=== PATIENT | male | born 1985 | race Asian ===

== ENCOUNTER → 2018-08-21 | Outpatient (CLI) | payer OTHER ==
--- NOTE | 2018-08-21 13:52 | KCIC ---
EXAM: Chest, single view. HISTORY: TB exposure. COMPARISON: None. FINDINGS: A frontal view of the chest is obtained. There is no infiltrate, pleural effusion or pneumothorax. The heart is normal in size. IMPRESSION: No acute pulmonary finding and no radiographic evidence of pulmonary tuberculosis. Electronically signed by: Martha Valentine MD (08/21/2018 1:49 PM) [id number]
== END | disposition home or self-care (01) ==
LOC: EDBD 11:24 → KCIC 11:24
PROVIDERS: ATTEND Family Medicine
DX: Z20.1 Contact with and (suspected) exposure to tuberculosis (principal)
CPT/HCPCS: 71045